=== PATIENT | male | born 1970 | race Caucasian/White ===

== ENCOUNTER 2017-11-30 23:00 | Emergency (ER) | payer MEDICARE ==
[2017-11-30] MEDS ORDERED: ASPIRIN 81 MG CHEW TAB PO ONE (23:28)
[2017-11-30 23:49] LABS: BASOPHILS % 0.5 (0.0-1.5); EOSINOPHILS % 2.7 % (0.0-6.8); MEAN CORPUSCULAR HEMOGLOBIN 24.1 pg (28.0-34.0); MEAN CORPUSCULAR VOLUME 79.3 fl (80.0-100.0); MONOCYTES % 6.5 % (0.0-11.0); NEUTROPHILS # 4.4 # k/uL (1.4-7.7)
--- NOTE | 2017-11-30 23:50 | ED Physician Documentation ---
Chest Pain - HISTORIAN Historian: patient - HPI Stated Complaint: chest pain Chief Complaint: Chest Pain Additional Information: driving home from cardiologists appt [facility] dev chest pain left sternal border rad to lt shoulder-assoc diaphoresis dyspnea Onset: hours (1) Timing: sudden onset, still present (pt denies reprod w/palpation or pressure - took 3 ntg=no help) Duration: constant Last known Well Date: 12/01/17 Last Known Well Time: 20:30 Context: activity (driving home to [place] from [facility]) Severity: mild, moderate Quality: sharp, stabbing Chest Pain Radiation: no radiation Chest Pain Signs/Symptoms: diaphoresis, dyspnea. denies: nausea, vomiting Worsened By: exertion Relieved By: sitting up - ROS CONST: no problems MS/LYMPH: none GI/: none EYES/ENT: none SKIN/ENDO: none NEURO/PSYCH: none - PAST HX [place] risk factors: hypertension, diabetes Type 2, cardiac disease, AMI, other ( card arrest-pea--now wears defibrillator-no pacemaker) DVT/PE Risk Factors: denies: recent surgery, leg swelling Neuro deficit: CVA (rel to factor 5--no residual from cva) Lung disease: none Surgeries/Procedures: cardiac bypass, cardiac cath (ptsd factor 5 chf cva dm-controlled by diet) - SOCIAL HX Smoking History: greater than 1 pack/day Alcohol Use: none Drug Use: none - FAMILY HX Family HX: CAD under 55 - REVIEWED ASSESSMENTS Nursing Assessment Reviewed: Yes Vitals Reviewed: Yes ED Results Lab/Radiology - Orders Orders: ED Orders Category Date Time Status Continuous EKG monitoring Q30M Care 11/30/17 23:28 Active Continuous Pulse Oximetry Q30M Care 11/30/17 23:[address] IV Lock 1T Care 11/30/17 23:[address] IV Lock 1T Care 11/30/17 23:31 Active CHEST 1VIEW [RAD] Stat Exams 11/30/17 Taken CBC/PLATELET/DIFF Routine Lab 11/30/17 23:39 Received CMP Routine Lab 11/30/17 23:39 Received CREATINE KINASE Routine Lab 11/30/17 23:39 Received TROPONIN I (cTnI) Stat Lab 11/30/17 23:36 Received Aspirin Med 11/30/17 23:28 Discontinued 324 mg PO NOW ONE Oxygen Daily Oxygen 11/30/17 23:30 Ordered EKG WITH COMPARISON Stat Ther 11/30/17 23:28 Ordered Chest Pain Physical Exam - EXAM General Appearance: mild distress EENT: eye inspection normal Neck: nml inspection, no carotid bruit Respiratory: no resp. distress, chest non-tender, nml breath sounds. No: resp.distress, manifests distinct pain on movement CVS: reg. rate & rhythm, no murmur, no gallop Abdomen: soft, non-tender Skin: warm/dry, normal color. No: cyanosis, diaphoresis, jaundice, mottled Extremities: non-tender, normal range of motion, no evidence of injury, no edema Neuro: oriented X3, motor nml, sensation nml, mood/affect nml, cognition normal Discharge Clincal Impression: ATYPICAL CHEST PAIN, STRONG HX IHD-W/ POS FM HX Referrals: Primary Doctor,No [Primary Care Provider] - 2 Days Comments: WE HAD SUGGESTED WAIT 2 HRS REPEAT ENZYMES AND EKG BUT PT [id number] GO ON TO [place]. HE AGREES [place] SY [place] [facility] [place] expressed appreciation for our care-an AMA was signed Condition: Fair Disposition: 01 HOME, SELF-CARE Decision to Admit: NO Decision Time: 00:59
[2017-12-01] MEDS ORDERED: ACETAMINOPHEN 325 MG TABLET PO ONE (00:05)
[2017-12-01 00:06] LABS: eGFR (African) > 60; eGFR (Non-African) > 60
[2017-12-01 01:53] VITALS: BP 122/77
--- NOTE | 2017-12-01 02:11 | Diagnostic Imaging Report ---
RULA OLGUIN [facility] [address] [facility] [address] [place] [address]. [id number] Report Submission Date: Nov 30, 2017 11:46:44 PM CDT Patient Study Name: KIRK FLETCHER Date: Nov 30, 2017 11:30:17 PM CDT Modality Type: DX Gender: M Description: CHEST : 70 Institution: [facility] Physician: RULA OLGUIN Portable chest History: Sudden onset of chest pain Findings: Sternotomy and right ventricular implantable cardiac defibrillator are observed. Heart size and pulmonary vascularity are normal. The lungs are clear. There is no pleural effusion. Impression: Defibrillator and sternotomy. Electronically signed on Nov 30, 2017 11:46:44 PM CDT by: Osei CALLES
== END 2017-12-01 00:49 | disposition home or self-care (01) ==
LOC: ED 23:00
DX: R07.9 Chest pain, unspecified (principal); Z86.79 Personal history of other diseases of the circulatory system; Z53.9 Procedure and treatment not carried out, unspecified reason
CPT/HCPCS: 71045; 80053; 82550; 84484; 85025; 99285; S1016

== ENCOUNTER 2019-01-08 07:00 | Emergency (ER) | payer OTHER ==
--- NOTE | 2019-01-08 07:12 | ED Physician Documentation ---
General Adult - HISTORIAN Historian: patient - HPI Stated Complaint: chest pain Chief Complaint: General Adult Onset: hours Timing: still present Severity: moderate Further Comments: yes (Pt is a 48 yo male with chest pain and extensive cardiac hx. Pt has had open heart surgery with bypass 5 years ago. He has had 14 stents, he says. He has an implanted defibrillator for v-tach, which has gone off in the past but not recently. He has Factor V Leiden and has had strokes or stroke-like migraines. 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 Pain was 9/10, radiating to his his L shoulder and L arm, with diaphoresis and nausea. Pt has some sob. Pt took nitro x 4 with no relief. Pt also has hx HLD, HTN. Pt states he is on a transplant list and is followed at [facility] in [place]. Pt states he had a cardiac cath 2 weeks ago at [facility] in [place], where he lives. Pt has hx DVT's and PE's.) - ROS CONST: sweating EYES/ENT: none CVS/RESP: chest pain, shortness of breath GI/: nausea MS/SKIN/LYMPH: none - PAST HX Past History: AMI, other (NM, CABG, STEMI, V-tach with implanted defibrillator, Factor V Leiden, HLD, HTN, anemia, anxiety/depression, chronic pain.) Surgeries/Procedures: cardiac bypass, cholecystectomy, cardiac stent, other (Tonsillectomy, hypospadia repair, sinus surgery/rhinoplasy.) Allergies/Adverse Reactions: Allergies Allergy/AdvReac Type Severity Reaction Status Date / Time Iodinated Contrast Media Allergy Severe Anaphylaxis Verified 01/08/19 07:41 [Iodinated Contrast- Oral and IV Dye] amoxicillin Allergy Verified 01/08/19 11:55 atorvastatin Allergy Verified 01/08/19 11:55 buspirone [From BuSpar] Allergy Verified 01/08/19 11:55 chlorproethazine Allergy Verified 01/08/19 11:55 clopidogrel Allergy Verified 01/08/19 11:55 divalproex sodium Allergy Verified 01/08/19 11:55 haloperidol [From Haldol] Allergy Verified 01/08/19 11:55 ibuprofen Allergy Verified 01/08/19 11:55 indomethacin Allergy Verified 01/08/19 11:55 lamotrigine [From Lamictal] Allergy Verified 01/08/19 11:55 lisinopril Allergy Verified 01/08/19 11:55 lithium Allergy Verified 01/08/19 11:55 meloxicam Allergy Verified 01/08/19 11:55 mesoridazine Allergy Verified 01/08/19 11:55 metoclopramide Allergy Verified 01/08/19 11:55 niacin Allergy Verified 01/08/19 11:55 nortriptyline Allergy Verified 01/08/19 11:55 NSAIDS (Non-Steroidal Allergy Verified 01/08/19 11:55 Anti-Inflamma ondansetron Allergy Verified 01/08/19 11:55 prochlorperazine Allergy Verified 01/08/19 11:55 quetiapine [From Seroquel] Allergy Verified 01/08/19 11:55 rosuvastatin Allergy Verified 01/08/19 11:55 sertraline Allergy Verified 01/08/19 11:55 simvastatin Allergy Verified 01/08/19 11:55 sumatriptan Allergy Verified 01/08/19 11:55 tramadol Allergy Verified 01/08/19 11:55 trimethobenzamide Allergy Verified 01/08/19 11:55 varenicline Allergy Verified 01/08/19 11:55 venom-wasp Allergy Verified 01/08/19 11:55 morphine AdvReac Localized Verified 01/08/19 11:55 Redness Home Medications: Ambulatory Orders Medication Instructions Recorded Aripiprazole [Abilify] 1 tab PO DAILY 01/08/19 Aspirin [Walker] 1 tab PO DAILY 01/08/19 Bumetanide [Bumex] 1 tab PO DAILY 01/08/19 Butorphanol Tartrate [Stadol] 1 spray IH DAILY 01/08/19 Carvedilol [Coreg] 1 tab PO BID 01/08/19 Isosorbide Dinitrate [Isosorbide] 1 tab PO DAILY 01/08/19 LORazepam [Ativan] 1 tab PO TID 01/08/19 Nitroglycerin [Nitroquick] 0.4 mg PO Q5M PRN 01/08/19 Omeprazole 20 mg PO DAILY 01/08/19 Paroxetine HCl [Paxil] 1 tab PO DAILY 01/08/19 Ranolazine [Ranexa] 500 mg PO BID 01/08/19 Rivaroxaban [Xarelto] 1 tab PO DAILY 01/08/19 Tizanidine HCl [Zanaflex] 4 mg PO TID 01/08/19 Trazodone HCl [Desyrel] 1 tab PO HS 01/08/19 oxyCODONE HCL [Oxycontin] 0.5 tab PO DAILY 01/08/19 - SOCIAL HX Smoking History: cigarettes - FAMILY HX Family History: No (unk) - VITAL SIGNS Vital Signs: Vital Signs Temp Pulse Resp BP Pulse Ox 122/77 12/01/17 01:49 - REVIEWED ASSESSMENTS Nursing Assessment Reviewed: Yes Vitals Reviewed: Yes Progress - Progress Progress: CXR: Postoperative changes of the heart without evidence of acute intrathoracic process. 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 Benson Peck. - EKG/XRAY/CT EKG: NSR (HR=81; LAD; L atrial enlargement.) ED Results Lab/Radiology - Orders Orders: ED Orders Category Date Time Status Continuous EKG monitoring Q30M Care 01/08/19 07:08 Active Continuous Pulse Oximetry Q30M Care 01/08/19 07:[address] IV Lock 1T Care 01/08/19 07:08 Active CHEST 1VIEW [RAD] Stat Exams 01/08/19 Ordered BNP [NTBNP] Stat Lab 01/08/19 Ordered CBC/PLATELET/DIFF Routine Lab 01/08/19 07:08 Ordered CKMB Stat Lab 01/08/19 Ordered CMP Routine Lab 01/08/19 07:08 Ordered CREATINE KINASE Routine Lab 01/08/19 07:08 Ordered TROPONIN I Stat Lab 01/08/19 Ordered Aspirin [Walker] Med 01/08/19 07:08 Once 324 mg PO NOW ONE Oxygen Daily Oxygen 01/08/19 07:15 Ordered EKG WITH COMPARISON Stat Ther 01/08/19 07:08 Ordered General Adult Physical Exam - PHYSICAL EXAM GENERAL APPEARANCE: mild distress EENT: pharynx normal NECK: normal inspection, supple RESPIRATORY: no resp distress, chest non-tender, breath sounds normal CVS: reg rate & rhythm, heart sounds normal ABDOMEN: soft, no organomegaly, normal bowel sounds BACK: normal inspection, no CVA tenderness SKIN: warm/dry, normal color EXTREMITIES: non-tender, normal range of motion, no evidence of injury NEURO: oriented X3, motor nml, sensation nml Discharge Clincal Impression: chest pain Referrals: Primary Doctor,No [Primary Care Provider] - Condition: Stable Disposition: 02 XFER [facility] Decision to Admit: NO Decision Time: 11:05
[2019-01-08] MEDS: ASPIRIN 81 MG CHEW TAB PO ONE (07:20)
[2019-01-08] MEDS: MORPHINE SULFATE 4 MG/ML VIAL IM ONE ×2 (07:28→10:20)
[2019-01-08] MEDS: PROMETHAZINE HCL 25 MG in 0.9 % SODIUM CHLORIDE 50 ML IV ONE ×2 (07:35→12:05)
[2019-01-08 07:38] LABS: eGFR (Non-African) 58
[2019-01-08 07:59] LABS: BASOPHILS % 0.7 % (0.0-1.5); NEUTROPHILS # 5.1 # k/uL (1.4-7.7); SEGMENTED NEUTROPHILS % 64 % (39-79)
[2019-01-08 08:00] LABS: BASOPHILS % 1 % (0-2); OVALOCYTES 1+ (NEGATIVE)
[2019-01-08] MEDS: MORPHINE SULFATE 4 MG/ML VIAL IV ONE (08:13)
[2019-01-08] MEDS: diphenhydrAMINE HCL 50 MG/ML VIAL IVP ONE ×2 (08:30→10:30)
[2019-01-08] MEDS: 0.9 % SODIUM CHLORIDE 50 ML IV ONE (08:47)
[2019-01-08] MEDS: PROMETHAZINE HCL 25 MG/ML VIAL ONE (08:47)
[2019-01-08] MEDS: MORPHINE SULFATE 4 MG/ML VIAL ONE (08:47)
[2019-01-08] MEDS: diphenhydrAMINE HCL 50 MG/ML VIAL ONE (08:49)
--- NOTE | 2019-01-08 09:31 | Diagnostic Imaging Report ---
CHINEDU GAONA [facility] [address] [facility] [address] [place], [place]. [address] Report Submission Date: Jan 08, 2019 7:54:27 AM CDT Patient Study Name: KIRK FLETCHER Date: Jan 08, 2019 7:18:54 AM CDT Modality Type: DX Gender: M Description: CHEST 1VIEW : 70 Institution: [facility] Physician: CHINEDU GAONA HISTORY: 48-year-old male with chest pain, cardiac catheterization 2 weeks ago, history of CHF. COMPARISON: Chest x-ray dated 11/30/2017 TECHNIQUE: Single portable AP view of the chest was performed. FINDINGS: Postoperative changes of CABG and left chest AICD are re-identified. No pneumothorax, consolidative infiltrates, or pulmonary edema. There is a calcified granuloma in the left mid lung. The heart is not enlarged. IMPRESSION: Postoperative changes of the heart without evidence of acute intrathoracic process. Electronically signed on Jan 08, 2019 7:54:27 AM CDT by: Jere Valerio [facility]
[2019-01-08] MEDS: HYDROmorphone HCL/PF 1 MG/ML VIAL ONE (12:09)
[2019-01-08] MEDS: HYDROmorphone HCL/PF 1 MG/ML VIAL IVP ONE (12:16)
[2019-01-08 13:44] VITALS: BP 142/97
== END 2019-01-08 12:18 | disposition short-term general hospital (02) ==
LOC: ED 07:00
DX: R07.89 Other chest pain (principal)
CPT/HCPCS: 71045; 80053; 82550; 82553; 83880; 84484; 85025; 85379; 85610; 85730; 96374; 96375; 96376; 99281; 99284; J1170; J1200; J2270; J2550; S1016

== ENCOUNTER 2019-01-15 18:17 | Emergency (ER) | payer OTHER ==
--- NOTE | 2019-01-15 18:24 | ED Physician Documentation ---
Chest Pain - HISTORIAN Historian: patient - HPI Stated Complaint: chest pain x 45 min Chief Complaint: Chest Pain Onset: minutes (45) Timing: sudden onset Duration: constant Last known Well Date: 01/15/19 Last Known Well Time: 18:00 Context: activity (he was at the boat and did win money ) Severity: severe (01/14) Quality: sharp, stabbing Chest Pain Radiation: arms. denies: jaw Chest Pain Signs/Symptoms: nausea Worsened By: nothing Relieved By: nothing Further Comments: yes (He states he was at the boat and he did win money. He notes then he had pressure and sharp stabbing pain in the left side of his chest and left arm. No jaw radiation. Mild nausea . Mild shortness of air. No increased pain with deep breath. No injury) - ROS CONST: other (recently at [facility] for cardiac issues ) MS/LYMPH: none GI/: nausea EYES/ENT: none SKIN/ENDO: none NEURO/PSYCH: none - PAST HX [place] risk factors: hypertension, CHF DVT/PE Risk Factors: none TAD/AAA risk factors: none Neuro deficit: none GI disease: none Lung disease: none Surgeries/Procedures: cardiac bypass Allergies/Adverse Reactions: Allergies Allergy/AdvReac Type Severity Reaction Status Date / Time Iodinated Contrast Media Allergy Severe Anaphylaxis Verified 01/15/19 18:33 [Iodinated Contrast- Oral and IV Dye] amoxicillin Allergy Verified 01/15/19 18:33 atorvastatin Allergy Verified 01/15/19 18:33 buspirone [From BuSpar] Allergy Verified 01/15/19 18:33 chlorproethazine Allergy Verified 01/15/19 18:33 clopidogrel Allergy Verified 01/15/19 18:33 divalproex sodium Allergy Verified 01/15/19 18:33 haloperidol [From Haldol] Allergy Verified 01/15/19 18:33 ibuprofen Allergy Verified 01/15/19 18:33 indomethacin Allergy Verified 01/15/19 18:33 lamotrigine [From Lamictal] Allergy Verified 01/15/19 18:33 lisinopril Allergy Verified 01/15/19 18:33 lithium Allergy Verified 01/15/19 18:33 meloxicam Allergy Verified 01/15/19 18:33 mesoridazine Allergy Verified 01/15/19 18:33 metoclopramide Allergy Verified 01/15/19 18:33 niacin Allergy Verified 01/15/19 18:33 nortriptyline Allergy Verified 01/15/19 18:33 NSAIDS (Non-Steroidal Allergy Verified 01/15/19 18:33 Anti-Inflamma ondansetron Allergy Verified 01/15/19 18:33 prochlorperazine Allergy Verified 01/15/19 18:33 quetiapine [From Seroquel] Allergy Verified 01/15/19 18:33 rosuvastatin Allergy Verified 01/15/19 18:33 sertraline Allergy Verified 01/15/19 18:33 simvastatin Allergy Verified 01/15/19 18:33 sumatriptan Allergy Verified 01/15/19 18:33 tramadol Allergy Verified 01/15/19 18:33 trimethobenzamide Allergy Verified 01/15/19 18:33 varenicline Allergy Verified 01/15/19 18:33 venom-wasp Allergy Verified 01/15/19 18:33 morphine AdvReac Localized Verified 01/15/19 18:33 Redness Home Medications: Ambulatory Orders Medication Instructions Recorded Aripiprazole [Abilify] 1 tab PO DAILY 01/08/19 Aspirin [Walker] 1 tab PO DAILY 01/08/19 Bumetanide [Bumex] 1 tab PO DAILY 01/08/19 Butorphanol Tartrate [Stadol] 1 spray IH DAILY 01/08/19 Carvedilol [Coreg] 2 tab PO BID 01/08/19 Isosorbide Dinitrate [Isosorbide] 1 tab PO DAILY 01/08/19 LORazepam [Ativan] 1 tab PO TID 01/08/19 Nitroglycerin [Nitroquick] 0.4 mg PO Q5M PRN 01/08/19 Omeprazole 20 mg PO DAILY 01/08/19 Paroxetine HCl [Paxil] 1 tab PO DAILY 01/08/19 Ranolazine [Ranexa] 500 mg PO BID 01/08/19 Rivaroxaban [Xarelto] 1 tab PO DAILY 01/08/19 Tizanidine HCl [Zanaflex] 4 mg PO TID 01/08/19 Trazodone HCl [Desyrel] 1 tab PO HS 01/08/19 oxyCODONE HCL [Oxycontin] 0.5 tab PO DAILY 01/08/19 Empagliflozin [Jardiance] 10 mg PO DAILY 01/15/19 - SOCIAL HX Smoking History: non-smoker Alcohol Use: none Drug Use: none - FAMILY HX Family HX: none - VITAL SIGNS Vital Signs: Vital Signs Temp Pulse Resp BP Pulse Ox 142/97 01/08/19 13:42 - REVIEWED ASSESSMENTS Nursing Assessment Reviewed: Yes Vitals Reviewed: Yes Progress - Progress Progress: 1900: Pain is improving although nausea is consistent DG 1924: He continues to have pain DG 1999: Pain is improved DG 2219: Discussed results and plan - he is agreeable - will await and re draw trop at 9 pm and discuss possible discharge DG 2124: lab drawn for repeat trop and he is resting quietly - he is sitting with eyes closed says pain is 6/10 DG 2204: Labs normal pain improved. Discharge with call in to nursing home manager in AM DG Chest Pain Physical Exam - EXAM General Appearance: no acute distress, alert (talking. texting . NO ACUTE DISTRESS. ) EENT: eye inspection normal, ENT inspection normal, no signs of dehydration Neck: nml inspection Respiratory: no resp. distress, chest non-tender, nml breath sounds CVS: reg. rate & rhythm Abdomen: soft, normal bowel sounds, no distension Skin: warm/dry, normal color Extremities: non-tender, normal range of motion, no evidence of injury, no edema Neuro: oriented X3 Discharge Clincal Impression: Chest pain Qualifiers: Chest pain type: unspecified Qualified Code(s): R07.9 - Chest pain, unspecified Referrals: Primary Doctor,No [Primary Care Provider] - 2 Days Comments: 1. Continue meds 2. Call nursing home manager in AM 3. Any further chest pain Call 911 Condition: Stable Disposition: 01 HOME, SELF-CARE Decision to Admit: NO Date of Decison to Admit: 01/15/19 Decision Time: 22:11
[2019-01-15] MEDS: ASPIRIN 81 MG CHEW TAB PO ONE (18:45)
[2019-01-15] MEDS: 0.9 % SODIUM CHLORIDE 1,000 ML IV ONE (18:51)
[2019-01-15] MEDS: HYDROmorphone HCL/PF 1 MG/ML VIAL IVP ONE ×2 (18:51→19:48)
[2019-01-15] MEDS: ONDANSETRON HCL/PF 4 MG/ 2ML VIAL IVP ONE (18:51)
[2019-01-15 18:58] VITALS: BP 135/74
[2019-01-15 18:58] LABS: eGFR (Non-African) > 60
[2019-01-15] MEDS: PROMETHAZINE HCL 25 MG in 0.9 % SODIUM CHLORIDE 50 ML IV ONE (19:17)
[2019-01-16 06:39] LABS: BASOPHILS % 0.4 % (0.0-1.5); NEUTROPHILS # 3.3 # k/uL (1.4-7.7)
--- NOTE | 2019-01-16 10:21 | Diagnostic Imaging Report ---
KIKA NAVA [facility] [address] [facility] [address] [place], [place]. [address] Report Submission Date: Jan 15, 2019 6:52:06 PM CDT Patient Study Name: KIRK FLETCHER Date: Jan 15, 2019 6:27:28 PM CDT Modality Type: DX Gender: M Description: CHEST 1VIEW : 70 Institution: [facility] Physician: KIKA NAVA Chest AP portable at 1827 hours of January 15, 2019. Clinical history: Dyspnea. Left subclavian intracardiac defibrillator and pacer. Evidence of prior cardiac surgery. Normal heart shadow and mediastinum. No acute infiltrate or pleural effusion. No visible congestive heart failure. No pneumothorax. Impression: No active pulmonary pathology Electronically signed on Jan 15, 2019 6:52:06 PM CDT by: David CALLES
== END 2019-01-15 22:22 | disposition home or self-care (01) ==
LOC: ED 18:17
DX: R07.9 Chest pain, unspecified (principal)
CPT/HCPCS: 71045; 80053; 83880; 84484; 85025; 85379; 93005; 96374; 99282; 99283; J1170; J2550; S1016

== ENCOUNTER 2019-01-25 18:27 | Inpatient (IN) | payer OTHER ==
--- NOTE | 2019-01-25 18:34 | ED Physician Documentation ---
General Adult - HISTORIAN Historian: patient - HPI Stated Complaint: chest pain Chief Complaint: General Adult Timing: still present Severity: moderate Further Comments: yes (Pt is a 49 yo male with c/o chest pain. Pt has extensive heart hx and is a heart transplant candidate followed in [facility]. Pt states that he has had L sided chest pain in his upper chest that radiates to L arm and neck and through to his back. He describes pain as 9/10 in severity, but does not appear to be in marked distress. Pt states that he has had sob and nausea, and that he was sweaty earlier.) - ROS CONST: no problems EYES/ENT: none CVS/RESP: chest pain, shortness of breath GI/: nausea MS/SKIN/LYMPH: none - PAST HX Past History: other (AMI, CABG, V-tach with implanted defibrillator, CHF, Factor V Leiden, HLD, HTN, anemia, anxiety/depression, chronic pain.) Surgeries/Procedures: other (CABG, cholecystectomy, cardiac stent, tonsillectomy, hypospadia repair, sinus surgery, rhinoplasty) Allergies/Adverse Reactions: Allergies Allergy/AdvReac Type Severity Reaction Status Date / Time Iodinated Contrast Media Allergy Severe Anaphylaxis Verified 01/25/19 18:39 [Iodinated Contrast- Oral and IV Dye] amoxicillin Allergy Verified 01/25/19 18:39 atorvastatin Allergy Verified 01/25/19 18:39 buspirone [From BuSpar] Allergy Verified 01/25/19 18:39 chlorproethazine Allergy Verified 01/25/19 18:39 clopidogrel Allergy Verified 01/25/19 18:39 divalproex sodium Allergy Verified 01/25/19 18:39 haloperidol [From Haldol] Allergy Verified 01/25/19 18:39 ibuprofen Allergy Verified 01/25/19 18:39 indomethacin Allergy Verified 01/25/19 18:39 lamotrigine [From Lamictal] Allergy Verified 01/25/19 18:39 lisinopril Allergy Verified 01/25/19 18:39 lithium Allergy Verified 01/25/19 18:39 meloxicam Allergy Verified 01/25/19 18:39 mesoridazine Allergy Verified 01/25/19 18:39 metoclopramide Allergy Verified 01/25/19 18:39 niacin Allergy Verified 01/25/19 18:39 nortriptyline Allergy Verified 01/25/19 18:39 NSAIDS (Non-Steroidal Allergy Verified 01/25/19 18:39 Anti-Inflamma ondansetron Allergy Verified 01/25/19 18:39 prochlorperazine Allergy Verified 01/25/19 18:39 quetiapine [From Seroquel] Allergy Verified 01/25/19 18:39 rosuvastatin Allergy Verified 01/25/19 18:39 sertraline Allergy Verified 01/25/19 18:39 simvastatin Allergy Verified 01/25/19 18:39 sumatriptan Allergy Verified 01/25/19 18:39 tramadol Allergy Verified 01/25/19 18:39 trimethobenzamide Allergy Verified 01/25/19 18:39 varenicline Allergy Verified 01/25/19 18:39 venom-wasp Allergy Verified 01/25/19 18:39 morphine AdvReac Localized Verified 01/25/19 18:39 Redness Home Medications: Ambulatory Orders Medication Instructions Recorded Aripiprazole [Abilify] 1 tab PO DAILY 01/08/19 Aspirin [Walker] 1 tab PO DAILY 01/08/19 Bumetanide [Bumex] 1 tab PO DAILY 01/08/19 Butorphanol Tartrate [Stadol] 1 spray IH DAILY 01/08/19 Carvedilol [Coreg] 2 tab PO BID 01/08/19 Isosorbide Dinitrate [Isosorbide] 1 tab PO DAILY 01/08/19 LORazepam [Ativan] 1 tab PO TID 01/08/19 Nitroglycerin [Nitroquick] 0.4 mg PO Q5M PRN 01/08/19 Omeprazole 20 mg PO DAILY 01/08/19 Paroxetine HCl [Paxil] 1 tab PO DAILY 01/08/19 Ranolazine [Ranexa] 500 mg PO BID 01/08/19 Rivaroxaban [Xarelto] 1 tab PO DAILY 01/08/19 Tizanidine HCl [Zanaflex] 4 mg PO TID 01/08/19 Trazodone HCl [Desyrel] 1 tab PO HS 01/08/19 oxyCODONE HCL [Oxycontin] 0.5 tab PO DAILY 01/08/19 Empagliflozin [Jardiance] 10 mg PO DAILY 01/15/19 - SOCIAL HX Smoking History: cigarettes - FAMILY HX Family History: No - VITAL SIGNS Vital Signs: Vital Signs Temp Pulse Resp BP Pulse Ox 135/74 01/15/19 18:55 - REVIEWED ASSESSMENTS Nursing Assessment Reviewed: Yes Vitals Reviewed: Yes 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 The lungs are clear. There is no pleural effusion. Heart size and pulmonary vascularity are normal. Dilaudid 1 mg Phenergan 25 mg in 50 cc NS IVF Lasix 20 mg IV admit for r/o ID for ER provider - EKG/XRAY/CT EKG: NSR (HR=81; LAFB; unchanged from 01/15/19.) General Adult Physical Exam - PHYSICAL EXAM GENERAL APPEARANCE: mild distress EENT: pharynx normal NECK: normal inspection, supple RESPIRATORY: no resp distress, chest non-tender, breath sounds normal CVS: reg rate & rhythm, heart sounds normal ABDOMEN: soft, no organomegaly, normal bowel sounds BACK: normal inspection, no CVA tenderness SKIN: warm/dry, normal color EXTREMITIES: non-tender, normal range of motion, no evidence of injury NEURO: oriented X3, motor nml, sensation nml Discharge Clincal Impression: chest pain Condition: Stable Disposition: ADMITTED INPATIENT Decision to Admit: [id number] Decision Time: 21:00
[2019-01-25] MEDS ORDERED: HYDROmorphone HCL/PF 1 MG/ML VIAL IVP ONE (18:55)
[2019-01-25 18:56] LABS: BASOPHILS % 0.6 % (0.0-1.5); NEUTROPHILS # 4.7 # k/uL (1.4-7.7)
[2019-01-25] MEDS ORDERED: PROMETHAZINE HCL 25 MG in 0.9 % SODIUM CHLORIDE 50 ML IV ONE (19:08)
[2019-01-25 19:09] LABS: eGFR (Non-African) > 60
[2019-01-25] MEDS ORDERED: NITROGLYCERIN 0.4 MG TAB.SUBL SL PRN (20:40)
[2019-01-25] MEDS ORDERED: CARVEDILOL 12.5 MG TABLET PO SCH (21:00)
[2019-01-25] MEDS ORDERED: traZODone HCL 50 MG TABLET PO SCH (21:00)
[2019-01-25 21:03] VITALS: BMI 32.4
[2019-01-25] MEDS ORDERED: HYDROmorphone HCL/PF 2 MG/ML VIAL ONE (22:03)
[2019-01-25] MEDS: HYDROmorphone HCL/PF 2 MG/ML VIAL IVP PRN (22:17)
[2019-01-26] MEDS ORDERED: LORazepam 1 MG TABLET PO ONE (00:14)
--- NOTE | 2019-01-26 01:17 | Diagnostic Imaging Report ---
CHINEDU GAONA [facility] [address] [facility] [address] [place], [place]. [address] Report Submission Date: Jan 25, 2019 7:03:40 PM CDT Patient Study Name: KIRK FLETCHER Date: Jan 25, 2019 6:31:06 PM CDT Modality Type: DX Gender: M Description: CHEST 1VIEW : 70 Institution: [facility] Physician: CHINEDU GAONA Portable chest History: Chest pain Findings: Coronary artery stenting, sternotomy, and right ventricular implantable cardiac defibrillator are observed. The lungs are clear. There is no pleural effusion. Heart size and pulmonary vascularity are normal. Electronically signed on Jan 25, 2019 7:03:40 PM CDT by: Osei CALLES
[2019-01-26] MEDS: HYDROmorphone HCL/PF 2 MG/ML VIAL IVP PRN ×2 (01:46→06:22)
[2019-01-26 05:48] VITALS: BP 127/81
[2019-01-26] MEDS ORDERED: HYDROmorphone HCL/PF 2 MG/ML VIAL ONE (06:09)
--- NOTE | 2019-01-26 06:57 | Discharge Summary ---
Discharge Summary - Discharge [facility] Admission Date: 01/25/19 Discharge Date: 01/26/19 Discharge To: Home History of Present Illness: Pt is a 49 yo male with c/o chest pain. Pt has extensive heart hx and is a heart transplant candidate followed in [facility]. Pt states that he has had L sided chest pain in his upper chest that radiates to L arm and neck and through to his back. He describes pain as 9/10 in severity, but does not appear to be in marked distress. Pt states that he has had sob and nausea, and that he was sweaty earlier.) Condition at Discharge: Stable Home Medications: Ambulatory Orders Medication Instructions Recorded Aripiprazole [Abilify] 1 tab PO DAILY 01/08/19 Aspirin [Walker] 1 tab PO DAILY 01/08/19 Bumetanide [Bumex] 1 tab PO DAILY 01/08/19 Butorphanol Tartrate [Stadol] 1 spray IH DAILY 01/08/19 Carvedilol [Coreg] 2 tab PO BID 01/08/19 Isosorbide Dinitrate [Isosorbide] 1 tab PO DAILY 01/08/19 LORazepam [Ativan] 1 tab PO TID 01/08/19 Nitroglycerin [Nitroquick] 0.4 mg PO Q5M PRN 01/08/19 Omeprazole 20 mg PO DAILY 01/08/19 Paroxetine HCl [Paxil] 1 tab PO DAILY 01/08/19 Ranolazine [Ranexa] 500 mg PO BID 01/08/19 Rivaroxaban [Xarelto] 1 tab PO DAILY 01/08/19 Tizanidine HCl [Zanaflex] 4 mg PO TID 01/08/19 Trazodone HCl [Desyrel] 1 tab PO HS 01/08/19 oxyCODONE HCL [Oxycontin] 0.5 tab PO DAILY 01/08/19 Empagliflozin [Jardiance] 10 mg PO DAILY 01/15/19 Consultations this Visit: None Procedures this Visit: None Allergies/Adverse Reactions: Allergies Allergy/AdvReac Type Severity Reaction Status Date / Time Iodinated Contrast Media Allergy Severe Anaphylaxis Verified 01/25/19 18:39 [Iodinated Contrast- Oral and IV Dye] amoxicillin Allergy Verified 01/25/19 18:39 atorvastatin Allergy Verified 01/25/19 18:39 buspirone [From BuSpar] Allergy Verified 01/25/19 18:39 chlorproethazine Allergy Verified 01/25/19 18:39 clopidogrel Allergy Verified 01/25/19 18:39 divalproex sodium Allergy Verified 01/25/19 18:39 haloperidol [From Haldol] Allergy Verified 01/25/19 18:39 ibuprofen Allergy Verified 01/25/19 18:39 indomethacin Allergy Verified 01/25/19 18:39 lamotrigine [From Lamictal] Allergy Verified 01/25/19 18:39 lisinopril Allergy Verified 01/25/19 18:39 lithium Allergy Verified 01/25/19 18:39 meloxicam Allergy Verified 01/25/19 18:39 mesoridazine Allergy Verified 01/25/19 18:39 metoclopramide Allergy Verified 01/25/19 18:39 niacin Allergy Verified 01/25/19 18:39 nortriptyline Allergy Verified 01/25/19 18:39 NSAIDS (Non-Steroidal Allergy Verified 01/25/19 18:39 Anti-Inflamma ondansetron Allergy Verified 01/25/19 18:39 prochlorperazine Allergy Verified 01/25/19 18:39 quetiapine [From Seroquel] Allergy Verified 01/25/19 18:39 rosuvastatin Allergy Verified 01/25/19 18:39 sertraline Allergy Verified 01/25/19 18:39 simvastatin Allergy Verified 01/25/19 18:39 sumatriptan Allergy Verified 01/25/19 18:39 tramadol Allergy Verified 01/25/19 18:39 trimethobenzamide Allergy Verified 01/25/19 18:39 varenicline Allergy Verified 01/25/19 18:39 venom-wasp Allergy Verified 01/25/19 18:39 morphine AdvReac Localized Verified 01/25/19 18:39 Redness Discharge Summary: Patient is a 49 year old male that was admitted observation for chest pain. This morning patient is ready to go home; denies any chest pain; was initially wanting to sign out AMA because he needed to get his "mom some keys". He waited until troponin was done. Patient is in no acute distress. Nursing staff concerned about "drug seeking behavior" through the night. No distress but req uesting meds; hardly able to keep eyes open. 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 Hospital Course: Telemetry; serial EKGs and cardiac labs - Final Diagnosis (1) Chest pain Problems: Stable; resolved; enzymes negative Right or Left: Right
[2019-01-26] MEDS ORDERED: ISOSORBIDE DINITRATE 20 MG TABLET PO SCH (09:00)
[2019-01-26] MEDS ORDERED: ASPIRIN 81 MG CHEW TAB PO SCH (09:00)
[2019-01-26] MEDS ORDERED: PARoxetine HCL 10 MG TABLET PO SCH (09:00)
[2019-01-26] MEDS ORDERED: PANTOPRAZOLE SODIUM 40 MG TABLET.DR PO SCH (09:00)
[2019-01-26] MEDS ORDERED: LORazepam 1 MG TABLET PO SCH ×2 (09:00→21:00)
[2019-01-26] MEDS ORDERED: RANOLAZINE 1000 MG PO SCH (09:00)
[2019-01-26] MEDS ORDERED: FUROSEMIDE 40 MG TABLET PO SCH (16:00)
[2019-01-26] MEDS ORDERED: RIVAROXABAN 10 MG TABLET PO SCH (18:00)
[2019-01-27] MEDS ORDERED: ARIPiprazole 2 MG TABLET PO ONE (08:00)
== END 2019-01-26 07:40 | disposition home or self-care (01) | DRG 313 ==
LOC: ED 18:27 → SOUTH 20:41
PROVIDERS: ADMIT Emergency Medicine; ATTEND Emergency Medicine
DX: R07.89 Other chest pain (principal); D68.51 Activated protein C resistance; I11.0 Hypertensive heart disease with heart failure; I50.9 Heart failure, unspecified; E78.5 Hyperlipidemia, unspecified; F41.9 Anxiety disorder, unspecified; F32.9 Major depressive disorder, single episode, unspecified; G89.29 Other chronic pain; F17.210 Nicotine dependence, cigarettes, uncomplicated; I25.2 Old myocardial infarction; Z95.1 Presence of aortocoronary bypass graft; Z95.5 Presence of coronary angioplasty implant and graft; Z95.810 Presence of automatic (implantable) cardiac defibrillator; Z88.5 Allergy status to narcotic agent; Z88.0 Allergy status to penicillin; Z88.8 Allergy status to other drugs, medicaments and biological substances; Z88.6 Allergy status to analgesic agent; Z91.041 Radiographic dye allergy status; Z79.82 Long term (current) use of aspirin; Z79.899 Other long term (current) drug therapy; Z79.01 Long term (current) use of anticoagulants; Z76.5 Malingerer [conscious simulation]; Z76.82 Awaiting organ transplant status; Z90.49 Acquired absence of other specified parts of digestive tract
CPT/HCPCS: 36415; 71045; 80053; 82550; 82553; 83880; 84484; 85025; 93005; G0379; J1170; J2550; 99221; 99238; S1016

== ENCOUNTER 2019-02-23 14:25 | Emergency (ER) | payer SELFPAY ==
--- NOTE | 2019-02-23 14:26 | ED Physician Documentation ---
Chest Pain - HISTORIAN Historian: patient - HPI Stated Complaint: chest pain about one hour ago moving a truck Chief Complaint: Chest Pain Onset: hours (1) Duration: constant Last known Well Date: 02/23/19 Last Known Well Time: 13:45 Context: activity Severity: severe (02/13) Quality: pressure, tightness Chest Pain Radiation: no radiation Chest Pain Signs/Symptoms: nausea (with onset ) Worsened By: nothing Relieved By: nothing Further Comments: yes (He has an extensive cardiac history and is on a heart transplant list. He was in [place] today "moving a friends truck that is stuck" and started to have sharp then pressure and tightness pain in his chest. He is treated at [facility] in for heart releated issues. He states he took his "3 nitro like usual" and had no relief. He denies any other complaints) - ROS CONST: none - PAST HX RI risk factors: cardiac disease, AMI, CHF Lung disease: none Immunizations: UTD Allergies/Adverse Reactions: Allergies Allergy/AdvReac Type Severity Reaction Status Date / Time Iodinated Contrast Media Allergy Severe Anaphylaxis Verified 01/25/19 18:39 [Iodinated Contrast- Oral and IV Dye] amoxicillin Allergy Verified 01/25/19 18:39 atorvastatin Allergy Verified 01/25/19 18:39 buspirone [From BuSpar] Allergy Verified 01/25/19 18:39 chlorproethazine Allergy Verified 01/25/19 18:39 clopidogrel Allergy Verified 01/25/19 18:39 divalproex sodium Allergy Verified 01/25/19 18:39 haloperidol [From Haldol] Allergy Verified 01/25/19 18:39 ibuprofen Allergy Verified 01/25/19 18:39 indomethacin Allergy Verified 01/25/19 18:39 lamotrigine [From Lamictal] Allergy Verified 01/25/19 18:39 lisinopril Allergy Verified 01/25/19 18:39 lithium Allergy Verified 01/25/19 18:39 meloxicam Allergy Verified 01/25/19 18:39 mesoridazine Allergy Verified 01/25/19 18:39 metoclopramide Allergy Verified 01/25/19 18:39 niacin Allergy Verified 01/25/19 18:39 nortriptyline Allergy Verified 01/25/19 18:39 NSAIDS (Non-Steroidal Allergy Verified 01/25/19 18:39 Anti-Inflamma ondansetron Allergy Verified 01/25/19 18:39 prochlorperazine Allergy Verified 01/25/19 18:39 quetiapine [From Seroquel] Allergy Verified 01/25/19 18:39 rosuvastatin Allergy Verified 01/25/19 18:39 sertraline Allergy Verified 01/25/19 18:39 simvastatin Allergy Verified 01/25/19 18:39 sumatriptan Allergy Verified 01/25/19 18:39 tramadol Allergy Verified 01/25/19 18:39 trimethobenzamide Allergy Verified 01/25/19 18:39 varenicline Allergy Verified 01/25/19 18:39 venom-wasp Allergy Verified 01/25/19 18:39 morphine AdvReac Localized Verified 01/25/19 18:39 Redness Home Medications: Ambulatory Orders Medication Instructions Recorded Aripiprazole [Abilify] 1 tab PO DAILY 01/08/19 Aspirin [Walker] 1 tab PO DAILY 01/08/19 Bumetanide [Bumex] 1 tab PO DAILY 01/08/19 Butorphanol Tartrate [Stadol] 1 spray IH DAILY 01/08/19 Carvedilol [Coreg] 2 tab PO BID 01/08/19 Isosorbide Dinitrate [Isosorbide] 1 tab PO DAILY 01/08/19 LORazepam [Ativan] 1 tab PO TID 01/08/19 Nitroglycerin [Nitroquick] 0.4 mg PO Q5M PRN 01/08/19 Omeprazole 20 mg PO DAILY 01/08/19 Paroxetine HCl [Paxil] 1 tab PO DAILY 01/08/19 Ranolazine [Ranexa] 500 mg PO BID 01/08/19 Rivaroxaban [Xarelto] 1 tab PO DAILY 01/08/19 Tizanidine HCl [Zanaflex] 4 mg PO TID 01/08/19 Trazodone HCl [Desyrel] 1 tab PO HS 01/08/19 oxyCODONE HCL [Oxycontin] 0.5 tab PO DAILY 01/08/19 Empagliflozin [Jardiance] 10 mg PO DAILY 01/15/19 - SOCIAL HX Smoking History: cigarettes Alcohol Use: none Drug Use: none - FAMILY HX Family HX: none - VITAL SIGNS Vital Signs: Vital Signs Temp Pulse Resp BP Pulse Ox 127/81 01/26/19 05:45 - REVIEWED ASSESSMENTS Nursing Assessment Reviewed: Yes Vitals Reviewed: Yes Progress - Progress Progress: discussed findings and plan. Pain has lessened per his report DG Chest Pain Physical Exam - EXAM General Appearance: no acute distress, alert EENT: eye inspection normal, no signs of dehydration Neck: nml inspection Respiratory: no resp. distress, chest non-tender, nml breath sounds CVS: reg. rate & rhythm Abdomen: soft, no distension Skin: warm/dry, normal color Extremities: non-tender, normal range of motion, no evidence of injury Neuro: oriented X3 Discharge Clincal Impression: Chest pain Qualifiers: Chest pain type: other chest pain Qualified Code(s): R07.89 - Other chest pain Referrals: Primary Doctor,No [Primary Care Provider] - 2 Days Comments: 1. Continue meds 2. Follow up with your PCP 3. Return to ER for any increased concerns Condition: Stable Disposition: 01 HOME, SELF-CARE Decision to Admit: NO Date of Decison to Admit: 02/23/19 Decision Time: 15:30
[2019-02-23] MEDS ORDERED: ASPIRIN 81 MG CHEW TAB PO ONE (14:30)
[2019-02-23] MEDS ORDERED: HYDROmorphone HCL/PF 1 MG/ML VIAL IVP ONE (14:43)
[2019-02-23] MEDS ORDERED: ONDANSETRON HCL/PF 4 MG/ 2ML VIAL IVP ONE (15:11)
[2019-02-23] MEDS ORDERED: 0.9 % SODIUM CHLORIDE 1,000 ML IV ONE (15:11)
[2019-02-23 15:12] LABS: BASOPHILS % 0.5 % (0.0-1.5)
[2019-02-23 15:13] LABS: ANISOCYTOSIS 1+ (NEGATIVE); BASOPHILS % 3 % (0-2); NEUTROPHILS # 4.4 # k/uL (1.4-7.7); SEGMENTED NEUTROPHILS % 61 % (39-79)
[2019-02-23 15:14] LABS: OVALOCYTES 1+ (NEGATIVE)
--- NOTE | 2019-02-23 15:14 | Diagnostic Imaging Report ---
PATIENT MR#: [id number] PATIENT PATIENT NAME: KIRK FLETCHER DATE OF : 1970 REFERRING PHYSICIAN: Arlene De Guzman EXAM DATE: 02/23/2019 ACCESSION NUMBER: [id number] EXAM DESCRIPTION: CHEST 1VIEW Exam: AP chest. History: Chest pain. Shortness of breath. The examination is compared to study dated January 25, 2019. The cardiac pacemaker is in position over the left hemithorax with lead in the anticipated right vent ricle. Lung ramos are well aerated without pascual consolidation or effusion. Heart and mediastinal contour are normal. Sternotomy wires indicate previous thoracotomy. Impression: No pascual consolidation or effusion. Read by: Dr. Yusuf Salinas Transcribed by: Transcribed Date: Electronically signed by: Dr. Yusuf Salinas Date signed: 02/23/2019 3:13:49 PM
[2019-02-23 15:19] LABS: eGFR (Non-African) > 60
[2019-02-23 15:36] VITALS: BP 118/84
== END 2019-02-23 15:28 | disposition home or self-care (01) ==
LOC: ED 14:25
DX: R07.89 Other chest pain (principal); R11.0 Nausea
CPT/HCPCS: 36415; 71045; 80053; 83880; 84484; 85025; 96361; 96374; 96375; 99284; J1170; 93005; S1016

== ENCOUNTER 2019-04-27 15:45 | Observation (INO) | payer MEDICARE, OTHER ==
--- NOTE | 2019-04-27 15:47 | ED Physician Documentation ---
General Adult - HISTORIAN Historian: patient - HPI Stated Complaint: chest pain Chief Complaint: General Adult Onset: hours Timing: still present Severity: moderate Further Comments: yes (Pt is a 49 yo male with c/o chest pain. Pt has extensive heart hx and has been considered for heart transplantation. He is followed at [facility] in [place]. Pt has had multiple stents and says that his EF has been measured as 28%. Pt had spontaneous onset of cp at rest with radiation to his L arm and some pressure across his upper chest. He has had some sob and nausea. He says that he was a little sweaty earlier. 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.) - ROS CONST: no problems EYES/ENT: none CVS/RESP: chest pain, shortness of breath GI/: nausea (mild) MS/SKIN/LYMPH: none NEURO/PSYCH: headache (after taking nitro at home) - PAST HX Past History: other (AMI, CABG, v-tach with implanted defibrillator, CHF, Factor V Leiden, HLD, HTN, anemia, anxiety/depression, chronic pain, GERD.) Surgeries/Procedures: other (CABG, cholecystectomy, cardiac stents, tonsillectomy, hypospadia repair, sinus surgery, rhinoplasty.) Allergies/Adverse Reactions: Allergies Allergy/AdvReac Type Severity Reaction Status Date / Time Iodinated Contrast Media Allergy Severe Anaphylaxis Verified 04/27/19 16:03 [Iodinated Contrast- Oral and IV Dye] amoxicillin Allergy Verified 04/27/19 16:03 atorvastatin Allergy Verified 04/27/19 16:03 buspirone [From BuSpar] Allergy Verified 04/27/19 16:03 chlorproethazine Allergy Verified 04/27/19 16:03 clopidogrel Allergy Verified 04/27/19 16:03 divalproex sodium Allergy Verified 04/27/19 16:03 haloperidol [From Haldol] Allergy Verified 04/27/19 16:03 ibuprofen Allergy Verified 04/27/19 16:03 indomethacin Allergy Verified 04/27/19 16:03 lamotrigine [From Lamictal] Allergy Verified 04/27/19 16:03 lisinopril Allergy Verified 04/27/19 16:03 lithium Allergy Verified 04/27/19 16:03 meloxicam Allergy Verified 04/27/19 16:03 mesoridazine Allergy Verified 04/27/19 16:03 metoclopramide Allergy Verified 04/27/19 16:03 niacin Allergy Verified 04/27/19 16:03 nortriptyline Allergy Verified 04/27/19 16:03 NSAIDS (Non-Steroidal Allergy Verified 04/27/19 16:03 Anti-Inflamma ondansetron Allergy Verified 02/24/19 02:15 prochlorperazine Allergy Verified 02/24/19 02:15 quetiapine [From Seroquel] Allergy Verified 04/27/19 16:03 rosuvastatin Allergy Verified 04/27/19 16:03 sertraline Allergy Verified 04/27/19 16:03 simvastatin Allergy Verified 04/27/19 16:03 sumatriptan Allergy Verified 04/27/19 16:03 tramadol Allergy Verified 04/27/19 16:03 trimethobenzamide Allergy Verified 04/27/19 16:03 varenicline Allergy Verified 04/27/19 16:03 venom-wasp Allergy Verified 04/27/19 16:03 morphine AdvReac Localized Verified 04/27/19 16:03 Redness Home Medications: Ambulatory Orders Medication Instructions Recorded Aripiprazole [Abilify] 1 tab PO DAILY 01/08/19 Aspirin [Walker] 1 tab PO DAILY 01/08/19 Bumetanide [Bumex] 1 tab PO DAILY 01/08/19 Butorphanol Tartrate [Stadol] 1 spray IH DAILY 01/08/19 Carvedilol [Coreg] 2 tab PO BID 01/08/19 Isosorbide Dinitrate [Isosorbide] 1 tab PO DAILY 01/08/19 LORazepam [Ativan] 1 tab PO TID 01/08/19 Nitroglycerin [Nitroquick] 0.4 mg PO Q5M PRN 01/08/19 Omeprazole 20 mg PO DAILY 01/08/19 Paroxetine HCl [Paxil] 1 tab PO DAILY 01/08/19 Ranolazine [Ranexa] 500 mg PO BID 01/08/19 Rivaroxaban [Xarelto] 1 tab PO DAILY 01/08/19 Tizanidine HCl [Zanaflex] 4 mg PO TID 01/08/19 Trazodone HCl [Desyrel] 1 tab PO HS 01/08/19 oxyCODONE HCL [Oxycontin] 0.5 tab PO DAILY 01/08/19 Empagliflozin [Jardiance] 10 mg PO DAILY 01/15/19 - SOCIAL HX Smoking History: cigarettes - FAMILY HX Family History: No (unk) - VITAL SIGNS Vital Signs: Vital Signs Temp Pulse Resp BP Pulse Ox 118/84 02/23/19 15:35 - REVIEWED ASSESSMENTS Nursing Assessment Reviewed: Yes Vitals Reviewed: Yes Progress - Progress Progress: 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 ASA 325 mg po. CXR: Single view of the chest demonstrates a normal cardiac and mediastinal silhouette. Sternotomy wires. Lung ramos without focal infiltrate. No blunting of the costophrenic margins. Left-sided cardiac pacemaker. Osseous structures are appropriate for age. Impression: No acute pulmonary process. Lasix 40 mg IV Admit for r/o PA to ER physician. - EKG/XRAY/CT EKG: NSR (HR=81; low voltage limb leads.) General Adult Physical Exam - PHYSICAL EXAM GENERAL APPEARANCE: mild distress EENT: pharynx normal NECK: normal inspection, supple RESPIRATORY: no resp distress, chest non-tender, breath sounds normal CVS: reg rate & rhythm, heart sounds normal ABDOMEN: soft, no organomegaly, normal bowel sounds BACK: normal inspection, no CVA tenderness SKIN: warm/dry, normal color EXTREMITIES: non-tender, normal range of motion, no evidence of injury, no edema NEURO: oriented X3, motor nml, sensation nml Discharge Clincal Impression: Chest pain Qualifiers: Chest pain type: unspecified Qualified Code(s): R07.9 - Chest pain, unspecified Condition: Stable Disposition: ADMITTED INPATIENT Decision to Admit: NO Decision Time: 18:30
[2019-04-27] MEDS ORDERED: ASPIRIN 81 MG CHEW TAB ONE (16:01)
[2019-04-27] MEDS ORDERED: ASPIRIN 325 MG TABLET PO ONE (16:02)
--- NOTE | 2019-04-27 16:19 | Diagnostic Imaging Report ---
PATIENT MR#: [id number] PATIENT PATIENT NAME: KIRK FLETCHER DATE OF : 1970 REFERRING PHYSICIAN: Devan Fernandez EXAM DATE: 04/27/2019 ACCESSION NUMBER: [id number] EXAM DESCRIPTION: CHEST 1VIEW Examination: Portable chest History: Evaluate lungs Comparison exam: 15 January 2019 Findings: Single view of the chest demonstrates a normal cardiac and mediastinal silhouette. Sternoto my wires. Lung ramos without focal infiltrate. No blunting of the costophrenic margins. Left-sided cardiac pacemak er. Osseous structures are appropriate for age. Impression: No acute pulmonary process. Read by: Dr. Apollo Guerrier Transcribed by: Transcribed Date: Electronically signed by: Dr. Apollo Guerrier Date signed: 04/27/2019 4:18:35 PM
[2019-04-27 16:20] LABS: NEUTROPHILS # 4.3 # k/uL (1.4-7.7)
[2019-04-27] MEDS ORDERED: ONDANSETRON HCL/PF 4 MG/ 2ML VIAL IVP ONE (16:31)
[2019-04-27] MEDS ORDERED: 0.9 % SODIUM CHLORIDE 50 ML IV ONE (16:35)
[2019-04-27] MEDS ORDERED: PROMETHAZINE HCL 25 MG in 0.9 % SODIUM CHLORIDE 50 ML IV ONE (16:35)
[2019-04-27] MEDS ORDERED: PROMETHAZINE HCL 25 MG/ML VIAL ONE (16:35)
[2019-04-27 16:36] LABS: eGFR (Non-African) > 60
[2019-04-27 16:48] LABS: ANISOCYTOSIS 1+ (NEGATIVE); BASOPHILS % 1 % (0-2); OVALOCYTES 1+ (NEGATIVE); SEGMENTED NEUTROPHILS % 63 % (39-79)
[2019-04-27] MEDS ORDERED: FUROSEMIDE 20 MG/2 ML VIAL IVP ONE (17:26)
[2019-04-27] MEDS ORDERED: FUROSEMIDE 40 MG/4 ML VIAL IVP ONE (17:27)
[2019-04-27 18:55] VITALS: BMI 29.2
[2019-04-27] MEDS ORDERED: NITROGLYCERIN 0.4 MG TAB.SUBL SL PRN (19:14)
[2019-04-27] MEDS ORDERED: oxyCODONE HCL 5 MG TABLET ONE (19:39)
[2019-04-27] MEDS: oxyCODONE HCL 10 MG TAB.ER.12H PO PRN (19:48)
[2019-04-27] MEDS: RANOLAZINE 1000 MG PO SCH (20:35)
[2019-04-27] MEDS ORDERED: traZODone HCL 50 MG TABLET ONE (20:56)
[2019-04-27] MEDS ORDERED: HYDROmorphone HCL/PF 2 MG/ML VIAL ONE (20:57)
[2019-04-27] MEDS ORDERED: HYDROmorphone HCL/PF 1 MG/ML VIAL IVP ONE (20:58)
[2019-04-27] MEDS ORDERED: traZODone HCL 50 MG TABLET PO SCH (21:00)
[2019-04-27] MEDS ORDERED: CARVEDILOL 12.5 MG TABLET PO SCH (21:00)
[2019-04-27] MEDS ORDERED: LORazepam 0.5 MG TABLET ONE (21:42)
[2019-04-27] MEDS ORDERED: TIZANIDINE HCL 4 MG TABLET PO ONE (21:43)
[2019-04-27] MEDS ORDERED: SOUTH LOCK-UP KEY 1 EACH EACH MC ONE (21:58)
[2019-04-27] MEDS: TIZANIDINE HCL 4 MG TABLET PO PRN (22:12)
[2019-04-27] MEDS: LORazepam 0.5 MG TABLET PO PRN (22:12)
[2019-04-28] MEDS ORDERED: HYDROmorphone HCL/PF 2 MG/ML VIAL ONE ×2 (00:04→07:13)
[2019-04-28] MEDS ORDERED: HYDROmorphone HCL/PF 1 MG/ML VIAL IVP ONE (00:06)
[2019-04-28] MEDS ORDERED: diphenhydrAMINE HCL 50 MG/ML VIAL ONE (01:04)
[2019-04-28] MEDS ORDERED: diphenhydrAMINE HCL 50 MG/ML VIAL IVP ONE (01:15)
[2019-04-28] MEDS ORDERED: oxyCODONE HCL 5 MG TABLET ONE (03:54)
[2019-04-28] MEDS: oxyCODONE HCL 10 MG TAB.ER.12H PO PRN (04:26)
[2019-04-28] MEDS ORDERED: TIZANIDINE HCL 4 MG TABLET PO ONE (05:44)
[2019-04-28] MEDS ORDERED: FUROSEMIDE 40 MG/4 ML VIAL ONE (05:44)
[2019-04-28] MEDS ORDERED: LORazepam 0.5 MG TABLET ONE (05:44)
[2019-04-28] MEDS ORDERED: PANTOPRAZOLE SODIUM 40 MG TABLET.DR ONE (05:44)
[2019-04-28] MEDS: TIZANIDINE HCL 4 MG TABLET PO PRN (05:55)
[2019-04-28] MEDS: LORazepam 0.5 MG TABLET PO PRN (05:55)
[2019-04-28] MEDS ORDERED: PANTOPRAZOLE SODIUM 40 MG TABLET.DR PO SCH (07:00)
[2019-04-28] MEDS ORDERED: FUROSEMIDE 40 MG/4 ML VIAL IVP SCH (07:00)
[2019-04-28] MEDS ORDERED: HYDROmorphone HCL/PF 1 MG/ML VIAL IVP PRN (07:16)
--- NOTE | 2019-04-28 07:24 | Discharge Summary ---
Discharge Summary - Discharge [facility] Admission Date: 03/28/19 Discharge Date: 04/28/19 Discharge To: Home History of Present Illness: Pt is a 49 yo with extensive cardiac hx, admitted from ER yesterday after c/o chest pain. Pt ruled out for MS with cardiac enzymes wnl x [address] elevations on EKG's. Pt c/o migraine headache during the night and was tx'd with Dilaudid 0.5 mg IV three times during the night. Pt is allergic to numerous other pain medications. Exam this am was unremarkable. 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 Home Medications: Ambulatory Orders Medication Instructions Recorded Aripiprazole [Abilify] 1 tab PO DAILY 01/08/19 Aspirin [Walker] 1 tab PO DAILY 01/08/19 Bumetanide [Bumex] 1 tab PO DAILY 01/08/19 Butorphanol Tartrate [Stadol] 1 spray IH DAILY 01/08/19 Carvedilol [Coreg] 2 tab PO BID 01/08/19 Isosorbide Dinitrate [Isosorbide] 1 tab PO DAILY 01/08/19 LORazepam [Ativan] 1 tab PO TID 01/08/19 Nitroglycerin [Nitroquick] 0.4 mg PO Q5M PRN 01/08/19 Omeprazole 20 mg PO DAILY 01/08/19 Paroxetine HCl [Paxil] 1 tab PO DAILY 01/08/19 Ranolazine [Ranexa] 500 mg PO BID 01/08/19 Rivaroxaban [Xarelto] 1 tab PO DAILY 01/08/19 Tizanidine HCl [Zanaflex] 4 mg PO TID 01/08/19 Trazodone HCl [Desyrel] 1 tab PO HS 01/08/19 oxyCODONE HCL [Oxycontin] 0.5 tab PO DAILY 01/08/19 Empagliflozin [Jardiance] 10 mg PO DAILY 01/15/19 Allergies/Adverse Reactions: Allergies Allergy/AdvReac Type Severity Reaction Status Date / Time Iodinated Contrast Media Allergy Severe Anaphylaxis Verified 04/27/19 16:03 [Iodinated Contrast- Oral and IV Dye] amoxicillin Allergy Verified 04/27/19 16:03 atorvastatin Allergy Verified 04/27/19 16:03 buspirone [From BuSpar] Allergy Verified 04/27/19 16:03 chlorproethazine Allergy Verified 04/27/19 16:03 clopidogrel Allergy Verified 04/27/19 16:03 divalproex sodium Allergy Verified 04/27/19 16:03 haloperidol [From Haldol] Allergy Verified 04/27/19 16:03 ibuprofen Allergy Verified 04/27/19 16:03 indomethacin Allergy Verified 04/27/19 16:03 lamotrigine [From Lamictal] Allergy Verified 04/27/19 16:03 lisinopril Allergy Verified 04/27/19 16:03 lithium Allergy Verified 04/27/19 16:03 meloxicam Allergy Verified 04/27/19 16:03 mesoridazine Allergy Verified 04/27/19 16:03 metoclopramide Allergy Verified 04/27/19 16:03 niacin Allergy Verified 04/27/19 16:03 nortriptyline Allergy Verified 04/27/19 16:03 NSAIDS (Non-Steroidal Allergy Verified 04/27/19 16:03 Anti-Inflamma ondansetron Allergy Verified 02/24/19 02:15 prochlorperazine Allergy Verified 02/24/19 02:15 quetiapine [From Seroquel] Allergy Verified 04/27/19 16:03 rosuvastatin Allergy Verified 04/27/19 16:03 sertraline Allergy Verified 04/27/19 16:03 simvastatin Allergy Verified 04/27/19 16:03 sumatriptan Allergy Verified 04/27/19 16:03 tramadol Allergy Verified 04/27/19 16:03 trimethobenzamide Allergy Verified 04/27/19 16:03 varenicline Allergy Verified 04/27/19 16:03 venom-wasp Allergy Verified 04/27/19 16:03 morphine AdvReac Localized Verified 04/27/19 16:03 Redness Patient Problems: Current Active Problems Problem Status Onset Chest pain Acute
[2019-04-28] MEDS ORDERED: PARoxetine HCL 10 MG TABLET PO ONE (08:09)
[2019-04-28] MEDS ORDERED: ARIPiprazole 2 MG TABLET PO ONE ×2 (08:09→09:00)
[2019-04-28] MEDS: RANOLAZINE 1000 MG PO SCH (08:21)
[2019-04-28] MEDS ORDERED: oxyCODONE HCL 10 MG TAB.ER.12H PO SCH (09:00)
[2019-04-28] MEDS ORDERED: RIVAROXABAN 10 MG TABLET PO SCH (09:00)
[2019-04-28] MEDS ORDERED: ISOSORBIDE DINITRATE 20 MG TABLET PO SCH (09:00)
[2019-04-28] MEDS ORDERED: PARoxetine HCL 10 MG TABLET PO SCH (09:00)
[2019-04-28] MEDS ORDERED: ASPIRIN 81 MG CHEW TAB PO SCH (09:00)
[2019-04-28 09:35] VITALS: BP 107/75
== END 2019-04-28 09:05 | disposition home or self-care (01) ==
LOC: ED 15:45 → SOUTH 18:31
PROVIDERS: ADMIT Emergency Medicine; ATTEND Emergency Medicine
DX: R07.9 Chest pain, unspecified (principal)
CPT/HCPCS: 80053; 82550; 82553; 83880; 84484; 85025; 85379; 93005; 96374; 96375; 99218; 99282; 99284; J1170; J1200; J1940; J2550; A9270; A9270-GY; G0378; S1016

== ENCOUNTER 2019-05-03 15:52 | Emergency (ER) | payer MEDICARE, OTHER ==
--- NOTE | 2019-05-03 16:02 | ED Physician Documentation ---
Headache - HISTORIAN Historian: patient - HPI Chief Complaint: Headache Additional Information: 49 year old male presents with c/o left occipatal headache; states that he gets them occasionally; states it started at 6 a.m. this morning; says he is out of h is Stadol and Oxycodone; patient is visiting with sitting up to the side of bed; no acute distress; no guarding or grimacing; no sensitivity to light or sound; neurovasculars intact; no deficits; will treat with steroid and antihistamine. Patient states that he has follow up appointment for his oxycodone and stadol on 05/20/19; explained the importance of f/u with PCP and not missing appt. Explained that narcotics can cause rebound headaches. Onset: hours (started at 6 a.m.) Timing: gradual, still present, better New Gradual Onset: No Exposure To: none Severity: moderate (states 7/10; no guarding or grimacing) Quality: similar to previous Associated Symptoms: nausea. denies: fever, chills, problems with vision, sensitivity to light, vomiting, neck pain, stiffness, speech problems, trouble walking Preceding Symptoms: denies: visual disturbance Exacerbated By: denies: light, noise, movement, position - ROS NEURO/PSYCH: denies: confusion, anxiety EYES/ENT: denies: sore throat, difficulty swallowing CVS/RESP: none GI/: denies: abdominal pain, diarrhea MS/SKIN/LYMPH: denies: muscle aches, back pain, swollen glands - PAST HX Medical History: hypertension, migraines, other (cardiac history) Surgical History: coronary bypass surgery Immunizations: UTD Allergies/Adverse Reactions: Allergies Allergy/AdvReac Type Severity Reaction Status Date / Time Iodinated Contrast Media Allergy Severe Anaphylaxis Verified 05/03/19 16:04 [Iodinated Contrast- Oral and IV Dye] amoxicillin Allergy Verified 05/03/19 16:04 atorvastatin Allergy Verified 05/03/19 16:04 buspirone [From BuSpar] Allergy Verified 05/03/19 16:04 chlorproethazine Allergy Verified 05/03/19 16:04 clopidogrel Allergy Verified 05/03/19 16:04 divalproex sodium Allergy Verified 05/03/19 16:04 haloperidol [From Haldol] Allergy Verified 05/03/19 16:04 ibuprofen Allergy Verified 05/03/19 16:04 indomethacin Allergy Verified 05/03/19 16:04 lamotrigine [From Lamictal] Allergy Verified 05/03/19 16:04 lisinopril Allergy Verified 05/03/19 16:04 lithium Allergy Verified 05/03/19 16:04 meloxicam Allergy Verified 05/03/19 16:04 mesoridazine Allergy Verified 05/03/19 16:04 metoclopramide Allergy Verified 05/03/19 16:04 niacin Allergy Verified 05/03/19 16:04 nortriptyline Allergy Verified 05/03/19 16:04 NSAIDS (Non-Steroidal Allergy Verified 05/03/19 16:04 Anti-Inflamma ondansetron Allergy Verified 05/03/19 16:04 prochlorperazine Allergy Verified 05/03/19 16:04 quetiapine [From Seroquel] Allergy Verified 05/03/19 16:04 rosuvastatin Allergy Verified 05/03/19 16:04 sertraline Allergy Verified 05/03/19 16:04 simvastatin Allergy Verified 05/03/19 16:04 sumatriptan Allergy Verified 05/03/19 16:04 tramadol Allergy Verified 05/03/19 16:04 trimethobenzamide Allergy Verified 05/03/19 16:04 varenicline Allergy Verified 05/03/19 16:04 venom-wasp Allergy Verified 05/03/19 16:04 morphine AdvReac Localized Verified 05/03/19 16:04 Redness Home Medications: Ambulatory Orders Medication Instructions Recorded Aripiprazole [Abilify] 1 tab PO DAILY 01/08/19 Aspirin [Walker] 1 tab PO DAILY 01/08/19 Bumetanide [Bumex] 1 tab PO DAILY 01/08/19 Butorphanol Tartrate [Stadol] 1 spray IH DAILY 01/08/19 Carvedilol [Coreg] 2 tab PO BID 01/08/19 Isosorbide Dinitrate [Isosorbide] 1 tab PO DAILY 01/08/19 LORazepam [Ativan] 1 tab PO TID 01/08/19 Nitroglycerin [Nitroquick] 0.4 mg PO Q5M PRN 01/08/19 Omeprazole 20 mg PO DAILY 01/08/19 Paroxetine HCl [Paxil] 1 tab PO DAILY 01/08/19 Ranolazine [Ranexa] 500 mg PO BID 01/08/19 Rivaroxaban [Xarelto] 1 tab PO DAILY 01/08/19 Tizanidine HCl [Zanaflex] 4 mg PO TID 01/08/19 Trazodone HCl [Desyrel] 1 tab PO HS 01/08/19 oxyCODONE HCL [Oxycontin] 0.5 tab PO DAILY 01/08/19 Empagliflozin [Jardiance] 10 mg PO DAILY 01/15/19 - SOCIAL HX Smoking History: greater than 1 pack/day Alcohol Use: none Drug Use: none - Family HX Family History: none - VITAL SIGNS Vital Signs: Vital Signs Temp Pulse Resp BP Pulse Ox 98 F 94 H 18 151/95 99 05/03/19 15:52 05/03/19 15:52 05/03/19 15:52 05/03/19 15:52 05/03/19 15:52 - REVIEWED ASSESSMENTS Nursing Assessment Reviewed: Yes Vitals Reviewed: Yes ED Results Lab/Radiology - Orders Orders: ED Orders Category Date Time Status diphenhydrAMINE HCL [Benadryl] Med 05/03/19 16:01 Discontinued 25 mg IM NOW ONE methylPREDNISolone SOD SUCC [SOLU-Medrol] Med 05/03/19 16:01 Discontinued 125 mg IM NOW ONE Headache Physical Exam - EXAM General Appearance: no acute distress, alert EENT: no facial swelling, eyes nml inspection, PERRL, nml ENT, pharynx nml Neck: normal inspection, supple Respiratory: no resp distress, chest non-tender, breath sounds normal CVS: reg. rate & rhythm, heart sounds nml Skin: color nml, no rash Extremitites: non-tender, normal range of motion - NEURO/PSYCH Higher Functions: alert, oriented x3, nml speech, mood/affect nml Cranial: nml as tested, no evidence of acute CVA Sensorimotor: motor nml, sensation nml Discharge Clincal Impression: Occipital headache Referrals: Primary Doctor,Judi [Primary Care Provider] - 2 Days Additional Instructions: Home and rest Sit in dark room Keep appointment with provider on 05/20/19 Condition: Good Disposition: 01 HOME, SELF-CARE Decision to Admit: NO Decision Time: 16:22
[2019-05-03 16:04] VITALS: BP 151/95
[2019-05-03] MEDS: diphenhydrAMINE HCL 50 MG/ML VIAL IM ONE (16:10)
[2019-05-03] MEDS: methylPREDNISolone SOD SUCC 125 MG/2 ML VIAL IM ONE (16:12)
== END 2019-05-03 16:10 | disposition home or self-care (01) ==
LOC: ED 15:52
DX: R51 Headache (principal)
CPT/HCPCS: 96372; 99282; 99284; J1200; J2930

== ENCOUNTER 2019-05-03 22:52 | Emergency (ER) | payer MEDICARE ==
--- NOTE | 2019-05-03 23:06 | ED Physician Documentation ---
Chest Pain - HISTORIAN Historian: patient - HPI Chief Complaint: Chest Pain Additional Information: 49 year old male was seen earlier today for left occipital headache; was not happy with the treatment at that time with solu-medrol and benadryl IM; but sta stephanie "the meds cleared my headache but now I have chest pain". Patient is in no acute distress; he is laughing and joking with and nursing; he states chest pain started approximately 1 1/2 hours ago; no c/o n/v/d- VSS- no diaphoresis; skin is pink, warm, dry. No radiating pain. Patient has a chronic history of chest pain with drug seeking behavior; EKG is unchanged from prior visits; presentation shows no distress. He continues to smoke tobacco; was instructed to follow up with PCP and camp head counselor after prior events in early April; he is now stating that he has a cardiology appointment 2019. Onset: hours Timing: gradual onset Duration: none Last known Well Date: 05/03/19 Last Known Well Time: 22:00 Context: rest Severity: mild Quality: none Chest Pain Radiation: no radiation Chest Pain Signs/Symptoms: denies: nausea, vomiting Worsened By: nothing Relieved By: nothing - ROS CONST: none MS/LYMPH: none GI/: none EYES/ENT: none SKIN/ENDO: none NEURO/PSYCH: none - PAST HX SD risk factors: hypertension, diabetes Type 2 DVT/PE Risk Factors: none TAD/AAA risk factors: none Neuro deficit: none GI disease: none Surgeries/Procedures: cardiac bypass Immunizations: UTD Allergies/Adverse Reactions: Allergies Allergy/AdvReac Type Severity Reaction Status Date / Time Iodinated Contrast Media Allergy Severe Anaphylaxis Verified 05/03/19 16:04 [Iodinated Contrast- Oral and IV Dye] amoxicillin Allergy Verified 05/03/19 16:04 atorvastatin Allergy Verified 05/03/19 16:04 buspirone [From BuSpar] Allergy Verified 05/03/19 16:04 chlorproethazine Allergy Verified 05/03/19 16:04 clopidogrel Allergy Verified 05/03/19 16:04 divalproex sodium Allergy Verified 05/03/19 16:04 haloperidol [From Haldol] Allergy Verified 05/03/19 16:04 ibuprofen Allergy Verified 05/03/19 16:04 indomethacin Allergy Verified 05/03/19 16:04 lamotrigine [From Lamictal] Allergy Verified 05/03/19 16:04 lisinopril Allergy Verified 05/03/19 16:04 lithium Allergy Verified 05/03/19 16:04 meloxicam Allergy Verified 05/03/19 16:04 mesoridazine Allergy Verified 05/03/19 16:04 metoclopramide Allergy Verified 05/03/19 16:04 niacin Allergy Verified 05/03/19 16:04 nortriptyline Allergy Verified 05/03/19 16:04 NSAIDS (Non-Steroidal Allergy Verified 05/03/19 16:04 Anti-Inflamma ondansetron Allergy Verified 05/03/19 16:04 prochlorperazine Allergy Verified 05/03/19 16:04 quetiapine [From Seroquel] Allergy Verified 05/03/19 16:04 rosuvastatin Allergy Verified 05/03/19 16:04 sertraline Allergy Verified 05/03/19 16:04 simvastatin Allergy Verified 05/03/19 16:04 sumatriptan Allergy Verified 05/03/19 16:04 tramadol Allergy Verified 05/03/19 16:04 trimethobenzamide Allergy Verified 05/03/19 16:04 varenicline Allergy Verified 05/03/19 16:04 venom-wasp Allergy Verified 05/03/19 16:04 morphine AdvReac Localized Verified 05/03/19 16:04 Redness Home Medications: Ambulatory Orders Medication Instructions Recorded Aripiprazole [Abilify] 1 tab PO DAILY 01/08/19 Aspirin [Walker] 1 tab PO DAILY 01/08/19 Bumetanide [Bumex] 1 tab PO DAILY 01/08/19 Butorphanol Tartrate [Stadol] 1 spray IH DAILY 01/08/19 Carvedilol [Coreg] 2 tab PO BID 01/08/19 Isosorbide Dinitrate [Isosorbide] 1 tab PO DAILY 01/08/19 LORazepam [Ativan] 1 tab PO TID 01/08/19 Nitroglycerin [Nitroquick] 0.4 mg PO Q5M PRN 01/08/19 Omeprazole 20 mg PO DAILY 01/08/19 Paroxetine HCl [Paxil] 1 tab PO DAILY 01/08/19 Ranolazine [Ranexa] 500 mg PO BID 01/08/19 Rivaroxaban [Xarelto] 1 tab PO DAILY 01/08/19 Tizanidine HCl [Zanaflex] 4 mg PO TID 01/08/19 Trazodone HCl [Desyrel] 1 tab PO HS 01/08/19 oxyCODONE HCL [Oxycontin] 0.5 tab PO DAILY 01/08/19 Empagliflozin [Jardiance] 10 mg PO DAILY 01/15/19 - SOCIAL HX Smoking History: less than 1 pack/day Alcohol Use: none Drug Use: none - FAMILY HX Family HX: none - VITAL SIGNS Vital Signs: Vital Signs Temp Pulse Resp BP Pulse Ox 151/95 05/03/19 15:52 - REVIEWED ASSESSMENTS Nursing Assessment Reviewed: Yes Vitals Reviewed: Yes Progress - Results/Orders Results/Orders: Discussed with patient to monitor blood sugars; increase protein and decrease carbs. Stop smoking - EKG/XRAY/CT EKG: NSR ED Results Lab/Radiology - Orders Orders: ED Orders Category Date Time Status Continuous EKG monitoring Q30M Care 05/03/19 23:04 Ordered Continuous Pulse Oximetry Q30M Care 05/03/19 23:[address] IV Lock 1T Care 05/03/19 23:04 Ordered CBC/PLATELET/DIFF Stat Lab 05/03/19 23:04 Ordered CKMB Stat Lab 05/03/19 23:04 Ordered CMP Stat Lab 05/03/19 23:04 Ordered CREATINE KINASE Stat Lab 05/03/19 23:04 Ordered TROPONIN I Stat Lab 05/03/19 23:04 Ordered Aspirin [Walker] Med 05/03/19 23:04 Once 324 mg PO NOW ONE EKG WITH COMPARISON Stat Ther 05/03/19 23:04 Ordered Chest Pain Physical Exam - EXAM General Appearance: no acute distress, alert EENT: eye inspection normal, ENT inspection normal, pharynx normal, no signs of dehydration, JUAN RAMON Neck: nml inspection, no carotid bruit Respiratory: no resp. distress, nml breath sounds CVS: reg. 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
[2019-05-03] MEDS: ASPIRIN 81 MG CHEW TAB PO ONE (23:16)
[2019-05-03 23:59] VITALS: BP 119/68
[2019-05-04 07:21] LABS: NEUTROPHILS # 3.7 # k/uL (1.4-7.7)
[2019-05-04 07:23] LABS: eGFR (Non-African) > 60
[2019-05-04 08:59] LABS: SEGMENTED NEUTROPHILS % 91 % (39-79)
[2019-05-04 09:00] LABS: ANISOCYTOSIS 1+ (NEGATIVE); OVALOCYTES 1+ (NEGATIVE); TEAR DROP CELLS 1+ (NEGATIVE)
== END 2019-05-03 23:59 | disposition home or self-care (01) ==
LOC: ED 22:52
DX: R07.89 Other chest pain (principal); Z76.5 Malingerer [conscious simulation]
CPT/HCPCS: 80053; 82550; 82553; 84484; 85025; 93005; 99282; 99283; S1016

== ENCOUNTER 2019-05-18 13:35 | Emergency (ER) | payer MEDICARE ==
--- NOTE | 2019-05-18 13:50 | ED Physician Documentation ---
General Adult - HISTORIAN Historian: patient - HPI Stated Complaint: headache Chief Complaint: General Adult Onset: hours Timing: still present Severity: moderate Further Comments: yes (Pt is a 49 yo male with c/o migraine headache. Pt has extensive cardio-vascular hx. Pt has run out of stadol and oxycodone.) - ROS CONST: no problems EYES/ENT: none CVS/RESP: none GI/: none MS/SKIN/LYMPH: none NEURO/PSYCH: headache - PAST HX Past History: other (AMI, CABG, v-tach with implanted defibrillator, CHF, Factor V Leiden, HLD, HTN, anemia, anxiety/depression, chronic pain, GERD, migraine) Surgeries/Procedures: other (CABG, cholecystectomy, cardiac stents, tonsillectomy, hypospadia repair, sinus surgery, rhinoplasty) Allergies/Adverse Reactions: Allergies Allergy/AdvReac Type Severity Reaction Status Date / Time Iodinated Contrast Media Allergy Severe Anaphylaxis Verified 05/03/19 16:04 [Iodinated Contrast- Oral and IV Dye] amoxicillin Allergy Verified 05/03/19 16:04 atorvastatin Allergy Verified 05/03/19 16:04 buspirone [From BuSpar] Allergy Verified 05/03/19 16:04 chlorproethazine Allergy Verified 05/03/19 16:04 clopidogrel Allergy Verified 05/03/19 16:04 divalproex sodium Allergy Verified 05/03/19 16:04 haloperidol [From Haldol] Allergy Verified 05/03/19 16:04 ibuprofen Allergy Verified 05/03/19 16:04 indomethacin Allergy Verified 05/03/19 16:04 lamotrigine [From Lamictal] Allergy Verified 05/03/19 16:04 lisinopril Allergy Verified 05/03/19 16:04 lithium Allergy Verified 05/03/19 16:04 meloxicam Allergy Verified 05/03/19 16:04 mesoridazine Allergy Verified 05/03/19 16:04 metoclopramide Allergy Verified 05/03/19 16:04 niacin Allergy Verified 05/03/19 16:04 nortriptyline Allergy Verified 05/03/19 16:04 NSAIDS (Non-Steroidal Allergy Verified 05/03/19 16:04 Anti-Inflamma ondansetron Allergy Verified 05/03/19 16:04 prochlorperazine Allergy Verified 05/03/19 16:04 quetiapine [From Seroquel] Allergy Verified 05/03/19 16:04 rosuvastatin Allergy Verified 05/03/19 16:04 sertraline Allergy Verified 05/03/19 16:04 simvastatin Allergy Verified 05/03/19 16:04 sumatriptan Allergy Verified 05/03/19 16:04 tramadol Allergy Verified 05/03/19 16:04 trimethobenzamide Allergy Verified 05/03/19 16:04 varenicline Allergy Verified 05/03/19 16:04 venom-wasp Allergy Verified 05/03/19 16:04 morphine AdvReac Localized Verified 05/03/19 16:04 Redness Home Medications: Ambulatory Orders Medication Instructions Recorded Aripiprazole [Abilify] 1 tab PO DAILY 01/08/19 Aspirin [Walker] 1 tab PO DAILY 01/08/19 Bumetanide [Bumex] 1 tab PO DAILY 01/08/19 Carvedilol [Coreg] 2 tab PO BID 01/08/19 Isosorbide Dinitrate [Isosorbide] 1 tab PO DAILY 01/08/19 LORazepam [Ativan] 1 tab PO TID 01/08/19 Nitroglycerin [Nitroquick] 0.4 mg PO Q5M PRN 01/08/19 Omeprazole 20 mg PO DAILY 01/08/19 Paroxetine HCl [Paxil] 1 tab PO DAILY 01/08/19 Ranolazine [Ranexa] 500 mg PO BID 01/08/19 Rivaroxaban [Xarelto] 1 tab PO DAILY 01/08/19 Trazodone HCl [Desyrel] 1 tab PO HS 01/08/19 Empagliflozin [Jardiance] 10 mg PO DAILY 01/15/19 Methocarbamol [Robaxin-750] 1,500 mg PO QID 05/18/19 - SOCIAL HX Smoking History: cigarettes - FAMILY HX Family History: No (unk) - VITAL SIGNS Vital Signs: Vital Signs Temp Pulse Resp BP Pulse Ox 119/68 05/03/19 23:56 - REVIEWED ASSESSMENTS Nursing Assessment Reviewed: Yes Vitals Reviewed: Yes Progress - Progress Progress: Stadol 1 mg IM improved. Follow up with primary provider or furniture painter. General Adult Physical Exam - PHYSICAL EXAM GENERAL APPEARANCE: mild distress EENT: eye inspection normal, pharynx normal NECK: normal inspection, supple RESPIRATORY: no resp distress, chest non-tender, breath sounds normal CVS: reg rate & rhythm, heart sounds normal BACK: normal inspection, no CVA tenderness SKIN: warm/dry, normal color EXTREMITIES: non-tender, normal range of motion, no evidence of injury NEURO: oriented X3, CN's nml as tested, motor nml, sensation nml Discharge Clincal Impression: migraine Referrals: Primary Doctor,No [Primary Care Provider] - Condition: Stable Disposition: 01 HOME, SELF-CARE Decision to Admit: NO Decision Time: 14:11
[2019-05-18] MEDS: BUTORPHANOL TARTRATE 1 MG/ML VIAL IM ONE (14:10)
[2019-05-18] MEDS: BUTORPHANOL TARTRATE 2 MG/ML VIAL IV ONE (14:10)
[2019-05-18] MEDS: BUTORPHANOL TARTRATE 2 MG/ML VIAL IM ONE (14:10)
[2019-05-18] MEDS: BUTORPHANOL TARTRATE 1 MG/ML VIAL ONE (14:10)
[2019-05-18 14:20] VITALS: BP 119/68
== END 2019-05-18 14:19 | disposition home or self-care (01) ==
LOC: ED 13:35
DX: G43.909 Migraine, unspecified, not intractable, without status migrainosus (principal)
CPT/HCPCS: 96372; 99282; 99283